=== PATIENT | male | born 1975 | race Two or more races ===

== ENCOUNTER 2017-08-16 19:28 | Emergency (ER) | payer MEDICAID ==
[2017-08-16] MEDS ORDERED: Sulfamethoxazole/TMP 800/160mg Tab PO ONE (20:03)
--- NOTE | 2017-08-16 20:11 | ED Physician Chart ---
ED Chief Complaint/HPI - Patient Information Date Seen:: 08/16/17 Time Seen:: 19:55 Chief Complaint:: left elbow redness, swelling and pain History of Present Illness:: Patient spontaneously developed redness, swelling and pain of the posterior aspect of the left elbow last night. The symptoms increased in severity today. Patient had chills and subjective fever today. Allergies:: Allergies Allergy/AdvReac Type Severity Reaction Status Date / Time No Known Allergies Allergy Verified 08/16/17 19:56 Vitals:: Vital Signs - 8 hr 08/16/17 19:45 Temp 98.8 F HR 115 RR 18 BP 113/82 O2 Sat % 96 Historian:: Patient Review:: Nurse's Note Reviewed ED Review of Systems - Review of Systems General/Constitutional: Fever, Chills Skin: Skin lesions Head: No headache Eyes: No loss of vision ENT: No earache Neck: No neck pain Cardio Vascular: No chest pain, No palpitations Pulmonary: No SOB GI: No nausea, No vomiting G/U: No dysuria, No frequency, No hematuria Musculoskeletal: No bone or joint pain, No muscle pain Endocrine: No polyuria, No polydipsia Psychiatric: No prior psych history, No depression, No anxiety Hematopoietic: No bruising Allergic/Immuno: No urticaria Neurological: No syncope, No focal symptoms ED Past Medical History - Past Medical History Past Medical History: Other (hypotension) Family History: Diabetes Melitus Social History: Smoker, Alcohol (smokes 5 cigarettes a day and drinks 32 ounces of beer per day) Surgical History: None Psychiatricy History: None Family Medical History - Family Member Mother History Unknown: Yes ED Physical Exam - Physical Examination General/Constitutional: Well-developed, well-nourished, Alert Head: Atraumatic Eyes: Lids, conjuctiva normal, PERRL Other Skin comments:: Left elbow: full range of flexion and extension with pain at full extension; 3 cm of fluctuance over the olecranon process with 10 cm of surrounding erythema ED Assessment - Assessment General Assessment: Skin cleansed with Betadine solution over the olecranon process left elbow; 1% Xylocaine about 5 mL with a 25-gauge needle for local anesthesia; using a 18- gauge needle on a 10 mL syringe about 5 mL of yellow translucent fluid which turned reddish at the very end was aspirated and sent for culture and sensitivity. A Band-Aid and a three-inch Richard were then applied ED Septic Shock - . Is Septic Shock (SBP<90, OR Lactate>4 mmol\L) present?: No - <6hrs of presentation: Vital Signs: Vital Signs - 8 hr 08/16/17 19:45 Temp 98.8 F HR 115 RR 18 BP 113/82 O2 Sat % 96 ED Reassessment (Disposition) - Reassessment Reassessment Condition:: Improved - Diagnosis Diagnosis:: Olecranon Bursitis and Cellulitis Left Elbow - Aftercare/Follow up Instructions Aftercare/Follow-Up Instructions:: Refer to Discharge Instructions Medication Prescribed:: Prescription for Keflex 500 mg 4 times a day for 1 week and Bactrim double strength 1 twice a day for 1 week given - Patient Disposition Discharge/Transfer:: Home Condition at Disposition:: Stable, Improved
[2017-08-16] MEDS ORDERED: Sulfamethoxazole/TMP 800/160mg Tab ONE (20:48)
== END 2017-08-16 21:40 | disposition home or self-care (01) ==
LOC: ER 19:28
DX: M70.22 Olecranon bursitis, left elbow (principal); L03.114 Cellulitis of left upper limb
CPT/HCPCS: 87070-90; 87075-90; 87205-90; A4217; Z7502; Z7610